=== PATIENT | female | born 1985 | race Asian ===

== ENCOUNTER 2024-10-25 11:03 | Emergency (ER) | payer BC, SELFPAY ==
[2024-10-25 11:09] VITALS: BP 107/67
[2024-10-25 11:22] LABS: % Basophils 0.4 % (0-2); % Eosinophils 0.5 % (0-6); % Immature Granulocytes 0.2 % (0-0.5); % Lymphocytes 20.2 % (20.5-51.1); % Monocytes 6.5 % (1.7-9.3); % Neutrophils 72.2 % (42.2-75.2); Absolute Lymphocytes 1.1 10^3/uL (1.2-3.4); Absolute Monocytes 0.4 10^3/uL (0.1-0.6); Hematocrit 36.3 % (37.0-47.0); Hemoglobin 12.7 g/dL (12.0-16.0); Mean Corpuscular Hgb 31.3 pg (27.0-31.0); Mean Corpuscular Volume 89.4 fL (81.0-99.0); Nucleated Red Blood Cells % 0 %; Platelet Count 253 10^3/uL (130-400); Red Blood Cell Count 4.06 10^6/uL (4.20-5.40); Red Cell Dist. Width 11.6 % (11.5-14.5); White Blood Cell Count 5.5 10^3/uL (4.8-10.8)
[2024-10-25 11:43] LABS: ALT (SGPT) 15 U/L (0-35); AST (SGOT) 22 U/L (14-36); Albumin 4.8 g/dl (3.5-5.0); Alkaline Phosphatase 52 U/L (38-126); Blood Urea Nitrogen 10 mg/dl (7-17); Calcium 9.5 mg/dl (8.4-10.2); Carbon Dioxide 24 mmol/L (22-30); Chloride 108 mmol/L (98-107); Glucose 100 mg/dl (70-99); Potassium 3.7 mmol/L (3.5-5.1); Sodium 141 mmol/L (135-145); Total Bilirubin 0.8 mg/dl (0.2-1.3); Total Protein 7.4 g/dl (6.3-8.2); eGFR > 60.00
[2024-10-25 12:00] VITALS: BP 103/58
--- NOTE | 2024-10-25 12:06 | ED.GENMED ---
History of Present Illness
General
Chief Complaint: Problems
Source: patient
Exam Limitations: none
Time Seen by Provider: 10/25/24 12:01
Nursing documentation reviewed up to this point in time: agreed with
History of Present Illness
History of Present Illness:
The patient is a 39-year-old female, at approximately 5 weeks gestation who presents to the emergency department with concerns of vaginal spotting yesterday. Patient states yesterday evening around 8 PM she noticed light brown spotting which
persisted for less than 1 hour. She has not noticed any additional bleeding since last night. Patient denies any associated abdominal/pelvic cramping, lightheadedness/dizziness, nausea, or fevers. No urinary symptoms.
The patient states her first positive at-home was about 2 weeks ago. She did recheck the test last night when she started bleeding which was positive. Her LMP was September 16.
The patient has had two previous miscarriages, one at eight weeks in August of last year and another at five to six weeks in June of this year. The patient has one living child and this is her fourth .
The patient has communicated with her HUMAN RESOURCES TRAINEE, who suggested evaluation in the emergency department testing for progesterone levels and the possible use of a progesterone supplement. She has an appointment scheduled with an category consultant on Saturday
for her initial appointment, but she is concerned due to her history of miscarriages.
Review of Systems
Review of Systems
Allergies reviewed?: Yes
All Other Systems: ROS reviewed and negative except as documented in HPI and ROS
Phy Exam
Physical Exam
Physical Exam:
Vitals: Patient's vital signs are stable. Afebrile
General: Patient is very well appearing, no acute distress
Skin: Warm and dry, no rashes or lesions
Head: Normocephalic, atraumatic
Eyes: Sclera nonicteric.
Throat: Protecting airway
Neck: Normal ROM
Cardiac: Regular rate and rhythm, no murmurs.
Pulm: Normal respiratory effort, no wheezes, rales, rhonchi heard on exam
.
Abdomen: Abdomen soft and nontender. No palpable masses.
Extremities: No evidence of cyanosis or edema
Neuro: AAOx3. Grossly intact.
Psychiatric: Normal affect.
Course
Orders/Labs/Results
Orders:
Orders
10/25/24 11:15
Complete Blood Count/With Diff Urgent
Comprehensive Metabolic Panel Urgent
HCG,SERUM [Beta HCG Quantitative] Urgent
Is this a screen?: No
Progesterone Urgent
Comment: ADD ON
10/25/24 12:28
Add On- LAB Urgent
Tests Added?: progesterone
1st Trimester US [US 1st Trimester] Urgent
Comment:
Reason For Exam: bleeding in early
10/25/24 13:24
Type+Screen Urgent
10/25/24 13:52
ABO2 Urgent
BBK Wristband Number:
Associate notified that ABO2 has been ordered: [id number]
Date: 10/25/24
Time: 13:34
Diagnostic Radiologic Technologist ID: [id number]
Abnormal Lab Results
10/25/24
11:15
RBC 4.06 L 10^6/uL
(4.20-5.40)
Hct 36.3 L %
(37.0-47.0)
MCH 31.3 H pg
(27.0-31.0)
Absolute Lymphs (auto) 1.1 L 10^3/uL
(1.2-3.4)
Lymphocytes % 20.2 L %
(20.5-51.1)
Chloride 108 H mmol/L
(98-107)
Glucose 100 H mg/dl
(70-99)
10/25/24 11:15
10/25/24 11:15
Vital Signs
Initial and Last Documented VS:
Initial Vital Signs
Temp Pulse Resp BP Pulse Ox
98.6 F 74 16 107/67 96
10/25/24 11:09 10/25/24 11:09 10/25/24 11:09 10/25/24 11:09 10/25/24 11:09
Last Documented Vital Signs
Temp Pulse Resp BP Pulse Ox
98.6 F 71 18 104/75 98
10/25/24 11:09 10/25/24 16:00 10/25/24 16:00 10/25/24 16:00 10/25/24 16:00
Information
Weeks gestation: Weeks: (5weeks 3 days)
Location: Location: (Intrauterine)
MDM/Problems Addressed
Differential Diagnosis Includes:
Not limited to: Threatened , missed , subchorionic hemorrhage, ectopic , molar , etc.
MDM/Problems Addressed:
The patient is a 39-year-old female, approximately five weeks , who presented after an episode of vaginal bleeding the previous night. She reported no associated abdominal pain, lightheadedness, or shortness of breath. The patient has a
history of multiple miscarriages and was concerned due to her current status. Upon arrival, she was hemodynamically stable. Physical examination was conducted and was mostly unremarkable, with a benign abdominal exam.
Labwork included a CBC which was unremarkable w/ a normal hemoglobin. Chemistry without clinically significant abnormalities. Quantitative HCG level of 26,417. A pelvic ultrasound was obtained, revealing a single intrauterine measuring
about five weeks, 3 days with a low heart rate of 73 BPM. Blood type testing showed the patient is O positive, and RhoGAM was not indicated.
Based on these findings and her history of vaginal bleeding, concern for a threatened . However - the patient has remained hemodynamically stable without further episodes of vaginal bleeding. Feel patient stable for discharge w/ OBGYN f/u
outpatient - she has appt scheduled for Saturday. Discussed importance of repeating HCG levels and another ultrasound to ensure heart tones rise appropriately. Return precautions discussed.
Chronic conditions affecting care:
History of multiple miscarriages
Acute Exacerbation and/or Progression of Chronic Illness:
N/A
*Radiology
Radiology exam reviewed: radiology read reviewed
*Pulse Oximetry
Patient hypoxic: no (96% on room air)
*EKG
Interpreted by ED Provider?: NA
*Nutrition Aide Interpretation
Rate: Nutrition Aide- N/A
*Critical Care Note
Total Time (30-74mins, 75-104mins- exclusive of procedures): Not Applicable
ED Attending Note
-
Portions of this chart may have been created with voice recognition software.� Occasional wrong word or��sound alike� substitutions may have occurred due to the inherent limitations of voice recognition software.
Discharge Plan
Departure
Patient Disposition: Home (Routine Discharge)
Date of Disposition: 10/25/24
Time of Disposition: 16:14
Patient with high blood pressure during this ER visit?: No
Condition: Good
Covid-19: Not Applicable
Discharge Problem:
Threatened miscarriage in early
Instructions: Threatened Miscarriage (DC)
Referrals:
Eduard Martins MD [Family Provider, Family Practice] - Keep scheduled appt
Activity Restrictions/Additional Instructions:
RETURN TO THE EMERGENCY DEPARTMENT WITH ANY PERSISTENT/HEAVY VAGINAL BLEEDING, LIGHTHEADEDNESS/DIZZINESS, SHORTNESS OF BREATH, SEVERE ABDOMINAL PAIN, WORSENING IN CURRENT SYMPTOMS, OR ANY OTHER CONCERNS
- As discussed�your hCG level was [address]38 today in the emergency department. Your ultrasound showed an intrauterine approximately 5 weeks 3 days. The heart rate was measured to be low at 73 bpm. It is very important you follow closely
with your HUMAN RESOURCES TRAINEE for repeat lab work and follow-up ultrasound to ensure is viable. Please contact them tomorrow and keep scheduled appointment for this Saturday
- Stay well-hydrated.
- Please check back on the portal tomorrow evening or Saturday morning for the result of your progesterone test.
Monitor your symptoms closely and return to the emergency department with any acute worsening/new symptoms or any other concerns
Interventions
Interventions:
*Risk Screen - Suicide Last Done: 10/25/24 11:10
*General Assessment Last Done: 10/25/24 11:10
*Neglect/Abuse Screening Last Done: 10/25/24 11:10
*ED- Fall Risk Assessment Last Done: 10/25/24 17:02
*ED COVID-19 Vaccine History Last Done: 10/25/24 17:02
*Nursing Disposition Last Done: 10/25/24 17:02
ED-Female Genitourinary Assessment Last Done: 10/25/24 15:37
Discharge Date and Time
Discharge Date/Time: 10/25/24 17:03
Print Language: NIGERIAN
[2024-10-25 14:00] VITALS: BP 91/55
[2024-10-25 16:00] VITALS: BP 104/75
== END 2024-10-25 17:03 | disposition home or self-care (01) ==
LOC: EMR 11:03
PROVIDERS: Emergency Medicine; EMERGENCY PHYSICIAN Emergency Medicine; FAMILY PHYSICIAN Student in an Organized Health Care Education/Training Program
DX: O20.0 Threatened abortion (principal); Z3A.01 Less than 8 weeks gestation of pregnancy
CPT/HCPCS: 99284; 76801; 80053; 84144; 84702; 85025; 86850; 86900; 86901

== ENCOUNTER 2025-04-27 07:40 | Emergency (ER) | payer BC, SELFPAY ==
[2025-04-27 07:57] VITALS: BP 104/79
--- NOTE | 2025-04-27 09:31 | ED.GENMED ---
History of Present Illness
General
Chief Complaint: Abdominal Symptoms
Source: patient
Exam Limitations: none
Time Seen by Provider: 04/27/25 09:10
History of Present Illness
History of Present Illness:
Patient is a 39-year-old female approximate 32 weeks presents to the ER for evaluation. Patient reports she has been constipated for the past 4 to 5 days. Her last bowel movement was approximate 4 days ago. Patient saw her ESTERS AND EMULSIFIERS SUPERVISOR
yesterday, seen ESTERS AND EMULSIFIERS SUPERVISOR group. She was recommended to start MiraLAX which she started yesterday. She has been taking Colace previously. She was also recommended to start Preparation H. Today patient reports she is having actually difficulty
urinating as to try to push her urine out. She also feels very thirsty and dry mouth over the past several days. She has gestational diabetes and watches her sugars. They have been normal.
She denies any vaginal bleeding.
Phy Exam
General Physical Exam
General Presentation: no apparent distress
General age: appears stated age
General Skin: warm and dry
General Habitus: normal
General Mental: alert
General Hydration: appears well hydrated
Gastrointestinal Exam
Gastrointestinal Exam: non tender, soft and other (gravid abdomen rectal exam stool high up in rectum soft brown no external hemorrhoids no internal hemorrhoids palpated )
Neurological Exam
Neurological Exam: alert and oriented x3
Musculoskeletal Exam
Musculoskeletal Exam: full ROM
Skin Exam
Skin Exam: normal color and warm/dry
Psychiatric Exam
Psychiatric Exam: normal mood/affect
Course
Orders/Labs/Results
Orders:
Orders
04/27/25 09:22
Enema- Treatment ONCE
Type: Milk of Molasses
Amount: x1
IV Insert/Care/Rem.- Treatment PRN
0.9% Sodium Chloride 1000 ml [Nss] 1,000 ml IV BOLUS
04/27/25 09:45
Heart Tones ONCE
04/27/25 09:49
Complete Blood Count/With Diff Urgent
Comprehensive Metabolic Panel Urgent
04/27/25 09:52
Urinalysis Reflex To Culture Urgent
Date Specimen was Collected: 04/27/25
Time Specimen was Collected: 09:49
04/27/25 13:17
0.9% Sodium Chloride 1000 ml [Nss] 1,000 ml IV BOLUS
Abnormal Lab Results
04/27/25 04/27/25
09:49 09:52
RBC 3.41 L 10^6/uL
(4.20-5.40)
Hgb 10.9 L g/dL
(12.0-16.0)
Hct 31.5 L %
(37.0-47.0)
MCH 32.0 H pg
(27.0-31.0)
Abs Immat Gran (auto) 0.1 H 10^3/uL
(0-0.05)
Absolute Neuts (auto) 8.3 H 10^3/uL
(1.4-6.5)
Absolute Lymphs (auto) 0.8 L 10^3/uL
(1.2-3.4)
Absolute Monos (auto) 0.7 H 10^3/uL
(0.1-0.6)
Immature Gran % 0.9 H %
(0-0.5)
Neutrophils % 83.6 H %
(42.2-75.2)
Lymphocytes % 8.1 L %
(20.5-51.1)
Sodium 134 L mmol/L
(135-145)
BUN 4 L mg/dl
(7-17)
Creatinine 0.5 L mg/dL
(0.6-1.0)
Glucose 102 H mg/dl
(70-99)
Urine Ketones 2+ A
(Negative)
04/27/25 09:49
04/27/25 09:49
Vital Signs
Initial and Last Documented VS:
Initial Vital Signs
Temp Pulse Resp BP Pulse Ox
98.3 F 94 18 104/79 97
04/27/25 07:57 04/27/25 07:57 04/27/25 07:57 04/27/25 07:57 04/27/25 07:57
Last Documented Vital Signs
Temp Pulse Resp BP Pulse Ox
98.3 F 92 16 99/57 100
04/27/25 07:57 04/27/25 14:00 04/27/25 14:00 04/27/25 14:00 04/27/25 14:00
Brewery Representative consulted with Physician
Brewery Representative consulted with physician?: Yes
Name of Physician Consulted: husam
MDM/Problems Addressed
Differential Diagnosis Includes:
Not limited to constipation
MDM/Problems Addressed:
As documented patient is a 39-year-old female 32 weeks today presenting for constipation. She has had a lot of pressure also with trying to get her urine out. She was seen by PMP and diagnosed with hemorrhoids and recommended Preparation
H. She complains of feeling very thirsty. She presents awake alert no acute distress she denies any actual abdominal pain or vaginal bleeding she complains mostly of discomfort in the rectal region with trying to have a bowel movement as well as
when she tries to urinate. She denies any fevers and is afebrile. Hemoglobin 10.9 normal renal function urinalysis negative for infection. Patient was given fluids here and enema with successful results. [id number]
Patient does feel that she is able to empty her bladder completely. Likely constipation, possible internal hemorrhoids.
Patient to be discharged with outpatient PMP follow-up
*Pulse Oximetry
SaO2: 97
Oxygen Mode of Delivery: Room air
Patient hypoxic: no
*Critical Care Note
Total Time (30-74mins, 75-104mins- exclusive of procedures): Not Applicable
ED Attending Note
-
Portions of this chart may have been created with voice recognition software.� Occasional wrong word or��sound alike� substitutions may have occurred due to the inherent limitations of voice recognition software.
Discharge Plan
Departure
Patient Disposition: Home (Routine Discharge)
Date of Disposition: 04/27/25
Time of Disposition: 13:49
Patient with high blood pressure during this ER visit?: No
Condition: Fair
Covid-19: Not Applicable
Discharge Problem:
Constipation
Instructions: Constipation, Adult (DC)
Referrals:
Sara Jon MD [Family Provider]
Activity Restrictions/Additional Instructions:
As discussed increase fiber intake, fresh fruits vegetables. Increase water intake. You may continue MiraLAX and Colace as previously recommended. Follow-up closely with your ESTERS AND EMULSIFIERS SUPERVISOR in the next several days.
return if any worsening of symptoms.
Interventions
Interventions:
*General Assessment Last Done: 04/27/25 10:10
*Neglect/Abuse Screening Last Done: 04/27/25 10:10
*ED COVID-19 Vaccine History Last Done: 04/27/25 10:10
*ED Influenza Vaccine History Last Done: 04/27/25 10:10
*Risk Screen - Suicide (C-SSRS) Last Done: 04/27/25 10:10
*Nursing Disposition Last Done: 04/27/25 15:43
OC-Jjzxti-Csydigvclk Assessment Last Done: 04/27/25 10:10
Discharge Date and Time
Discharge Date/Time: 04/27/25 15:43
Print Language: YAKUT
[2025-04-27] MEDS: NSS 1000 IV ×2 (09:49→13:18)
[2025-04-27 10:07] LABS: Hematocrit 31.5 % (37.0-47.0); Hemoglobin 10.9 g/dL (12.0-16.0); Mean Corp Hgb Conc. 34.6 g/dL (33.0-37.0); Mean Corpuscular Volume 92.4 fL (81.0-99.0); Nucleated Red Blood Cells % 0 %; Platelet Count 190 10^3/uL (130-400); Red Cell Dist. Width 13.2 % (11.5-14.5)
[2025-04-27 10:19] LABS: Urine Character Clear (Clear)
[2025-04-27 10:24] LABS: ALT (SGPT) 14 U/L (0-35); AST (SGOT) 20 U/L (14-36); Albumin 3.7 g/dl (3.5-5.0); Alkaline Phosphatase 100 U/L (38-126); Blood Urea Nitrogen 4 mg/dl (7-17); Calcium 8.9 mg/dl (8.4-10.2); Carbon Dioxide 23 mmol/L (22-30); Chloride 106 mmol/L (98-107); Glucose 102 mg/dl (70-99); Potassium 4.0 mmol/L (3.5-5.1); Sodium 134 mmol/L (135-145); Total Protein 6.6 g/dl (6.3-8.2); eGFR > 60.00
[2025-04-27 12:00] VITALS: BP 105/68
[2025-04-27 14:00] VITALS: BP 99/57
== END 2025-04-27 15:43 | disposition home or self-care (01) ==
LOC: EMR 07:40
PROVIDERS: Nurse Practitioner; EMERGENCY PHYSICIAN Student in an Organized Health Care Education/Training Program; FAMILY PHYSICIAN Family Medicine
DX: O26.893 Other specified pregnancy related conditions, third trimester (principal); K59.00 Constipation, unspecified; O24.419 Gestational diabetes mellitus in pregnancy, unspecified control; Z3A.32 32 weeks gestation of pregnancy
CPT/HCPCS: 96360; 96361; 99284; 80053; 81003; 85025